=== PATIENT | male | born 1970 | race Hispanic/Latino ===

== ENCOUNTER 2020-01-04 12:00 | Inpatient (IN) | payer MEDICAID, SELFPAY ==
[2020-01-04] VITALS (8 sets, daily range): BP systolic 113–140; BP diastolic 71–83; PULSE 79–105; RESP 18–32; TEMP 37.3–37.8; O2SAT 92–96; BMI 28.2
--- NOTE | ~2020-01-04 | XR_ITS ---
XR chest 1V portable 01/04/2020 12:59 Indication: Cough.Covid Procedure: AP portable chest Comparison: No prior studies for comparison. Findings: Bilateral airspace disease, compatible with pneumonia. Heart size normal. No pleural effusi on or pneumothorax. No acute osseous abnormality. Impression: 1: Bilateral airspace disease, compatible with pneumonia. Reviewed, dictated and finalized at location B. Impression: 1: Bilateral airspace disease, compatible with pneumonia.
[2020-01-04] MEDS: ALBUTEROL SULFATE (*SP) INHALER 1 PUFF (12:31)
[2020-01-04] MEDS: SODIUM CHLORIDE 0.9% IV 1,000 ML 999 ML IV CONT (13:07)
--- NOTE | 2020-01-04 13:13 | ED.GENADULT ---
HPI - General Adult General Chief complaint: Shortness of Breath/Dyspnea Stated complaint: h/o COVID+ test, worsening sxs Time Seen by Provider: 01/04/20 12:09 Source: patient Mode of arrival: ambulatory Limitations: language barrier History of Present Illness HPI narrative: Patient is a 49-year-old male who presents to emergency department for evaluation of being positive for COVID not feeling well for the last 10 days. Patient presents noting that he experiences shortness of breath when talking and active. Patient notes at rest he is not dyspneic. Patient notes cough congestion rhinorrhea fever chills. Patient has been taking [id number] medications with minimal improvement. Patient denies tobacco abuse or any pain at this time Related Data Home Medications Medication Instructions Recorded Confirmed acetaminophen [Tylenol] 325 mg PO ONCE PRN 01/04/20 naproxen 01/04/20 01/04/20 Allergies Allergy/AdvReac Type Severity Reaction Status Date / Time No Known Allergies Allergy Verified 01/04/20 12:51 Review of Systems Review of Systems: All systems reviewed & are unremarkable except as noted in HPI and below PMFSH Social History Social History (Updated 01/04/20 @ 13:14 by Lei Hernandez PA-C) Smoking status: Never smoker Gender identity (if verbalized by the patient): Male Sexual Orientation (if Verbalized by the Patient): Straight or Heterosexual Exam Narrative: Exam Narrative: GENERAL: Well-appearing, well-nourished, and in no acute distress. HEAD: Normocephalic, atraumatic. EYES: PERRLA and EOMI. ENT: Nares clear, no rhinorrhea or epistaxis. Mucous membranes moist. Oropharynx without tonsillar hypertrophy exudate or other lesions. NECK: Supple. No adenopathy or masses. CHEST: Clear to auscultation. No respiratory distress. No wheezes with crackles in the lung base HEART: Regular rate and rhythm. No murmur heard. Normal peripheral pulses.. EXTREMITIES: Normal range of motion. No edema. SKIN: Warm, dry, no rash. NEURO: No focal deficits. Alert and oriented x3. PSYCH: Normal mood and affect. Course Course Emergency Course: Patient in the room in no distress aware of case findings treatment plan and diagnosis agreeing to stay in hospital antibiotics initiated patient will now be admitted due to the hypoxemia that occurred with activity Consultations Consultation #1: Discussed case with hospitalist who is agreed to accept the patient Date: 01/04/20 Time: 14:48 Vital Signs Vital signs: Vital Signs Temperature 100.1 F H 01/04/20 12:42 Pulse Rate 104 H 01/04/20 12:42 Respiratory Rate 27 H 01/04/20 12:42 Blood Pressure 140/77 01/04/20 12:42 Pulse Oximetry 93 01/04/20 12:42 Temperature 100.1 F H 01/04/20 12:54 Pulse Rate 93 01/04/20 14:01 Respiratory Rate 32 H 01/04/20 14:01 Blood Pressure 113/78 01/04/20 14:01 Pulse Oximetry 94 01/04/20 14:01 Medical Decision Making MDM Narrative Medical decision making narrative: Patient with COVID positive with pneumonia patient with activity became hypoxic will be placed in hospital for further evaluation antibiotics will be initiated in the emergency department. Patient resting comfortably in the room in no distress at this time patient was made aware of case findings treatment plan and diagnosis Vital Signs Vital Signs: Vital Signs Temperature 100.1 F H 01/04/20 12:42 Pulse Rate 104 H 01/04/20 12:42 Respiratory Rate 27 H 01/04/20 12:42 Blood Pressure 140/77 01/04/20 12:42 Pulse Oximetry 93 01/04/20 12:42 Temperature 100.1 F H 01/04/20 12:54 Pulse Rate 93 01/04/20 14:01 Respiratory Rate 32 H 01/04/20 14:01 Blood Pressure 113/78 01/04/20 14:01 Pulse Oximetry 94 01/04/20 14:01 Lab Data Result diagrams: 01/04/20 13:12 01/04/20 13:37 Labs: Lab Results 01/04/20 01/04/20 01/04/20 Range/Units 13:12 13:24 13:37 WBC 15.0 H (4.5-10.0) K/mm3 RBC
[2020-01-04 13:22] LABS: Basophils Percent Auto 0.2 % (0.2-1.2); Hematocrit 47.1 % (42.0-52.0); Immature Granulocyte Absolute 0.11 K/mm3 (0.00-0.031); Immature Granulocyte Percent A 0.7 % (0-0.5); Lymphocytes Absolute Auto 1.03 K/mm3 (0.9-3.2); Lymphocytes Percent Auto 6.9 % (18.3-44.2); Mean Corpuscular Hemoglobin 30.3 pg (26-34); Mean Corpuscular Volume 89.2 fl (80-100); Mean Platelet Volume 11.1 fl (7.4-10.4); Monocytes Absolute Auto 0.5 K/mm3 (0.1-0.6); Monocytes Percent Auto 3.3 % (2.6-8.5); Neutrophils Absolute Auto 13.3 K/mm3 (1.3-6.7); Neutrophils Percent Auto 88.9 % (45.5-73.1); Platelet Count Result 251 k/mm3 (150-375); Red Blood Count 5.28 M/mm3 (4.6-6.20)
[2020-01-04 13:51] LABS: Lactic Acid Reflex 1.3 mmol/L (0.7-2.1)
[2020-01-04 14:04] LABS: Alanine Aminotransferase 69 U/L (4-50); Albumin Level 3.8 g/dL (3.5-5.1); Alkaline Phosphatase 76 U/L (38-126); Aspartate Amino Transferase 80 U/L (17-59); Bilirubin,Total 0.4 mg/dL (0.2-1.3); Blood Urea Nitrogen 10 mg/dL (9-20); Calcium 8.1 mg/dL (8.4-10.2); Carbon Dioxide 25 mmol/L (22-30); Chloride 96 mmol/L (98-107); Estimated CRCL calculation 120 ml/min; Estimated Glomerular Filt Rate > 60; Glucose 119 mg/dL (75-110); Potassium 4.2 mmol/L (3.4-5.0); Sodium 131 mmol/L (137-145)
--- NOTE | 2020-01-04 14:10 | PC.NURSE ---
RN at bedside to complete ambulatory o2 sat . Pt jogged in place, HR 126, o2 sat 86% on Room Air. Pt returned to 93% RM once at rest.
--- NOTE | 2020-01-04 14:39 | PC.NURSE ---
pt placed on oxygen per [facility] request
[2020-01-04 15:04] LABS: Lactate Dehydrogenase 1067 U/L (313-618)
[2020-01-04 15:11] LABS: CRP 20.2 mg/dL (<1.0)
--- NOTE | 2020-01-04 16:44 | PC.NURSE ---
RN report given to Juan Antonio 3rd med surge
--- NOTE | 2020-01-04 17:45 | ADMGEN ---
This patient, Fernando Tony, was admitted to [facility] Surg Room 328-01. Patient/family oriented to hospital policies and general routines including ID bracelet, bed and alarms, visiting hours, pain management, procedures, bathroom and other care routines, personal items, smoking policy, room service/diet, and visiting hours. Valuables list has been completed. Information on how to activate the Rapid Response Team has been discussed. Patient/Family are encouraged to report perceived risks to care and to ask questions if they do not understand what they are told or what they should do.
--- NOTE | 2020-01-04 18:43 | PM.IMHP ---
H&P: HPI History of Present Illness Chief complaint: PNEUMONIA,COVID-19,HYPOXEMIA Narrative: Fernando Tony is a 49 year old male who tested positive for covid 19 approximately 9 days ago. The patient stated that he had a dry cough and a low-grade fever that was less than 101 for at least 10 days. The patient stated he had symptoms after he went on a camping trip in [place]. The patient stated that he has been taking Tylenol and Motrin for the discomfort. The patient stated that he works for [employer] and none of them were positive for COVID. Nobody in his family is sick. The patient stated that he when he starts his activity he starts to cough and then get short of breath. The patient was doing well on room air but was told to ambulate and desatted down in the 80s while in the emergency room. Patient was started on a Zithromax and Rocephin. Bilateral airspace disease compatible with pneumonia. Patient was started on oxygen at 2 L per nasal cannula. The patient was given Decadron x1 and giving a since her mycin Rocephin in the emergency room. He was also given inhaler. He was given IV Tylenol and IV fluids. Patient is being admitted for hypoxia with covid 19. Review of Systems Review of Systems: All systems reviewed & are unremarkable except as noted in HPI and below Constitutional: Constitutional: Reports as per HPI and Reports no additional constitutional complaints Eyes: Eyes: Reports as per HPI and Reports no additional eye complaints ENT: Reports system reviewed and no additional complaints, except as documented and Reports Normal hearing present Cardiovascular: Cardiovascular: Reports no additional cardiovascular complaints Respiratory: Respiratory: Reports no additional respiratory complaints and Reports no additional respiratory complaints Gastrointestinal: Gastrointestinal: Reports as per HPI and Reports no additional gastrointestinal complaints Musculoskeletal: Musculoskeletal: Reports no additional musculoskeletal complaints Integumentary/Breasts: Skin/Breast: Reports system reviewed and no additional complaints, except as docu and Reports as per HPI Neurologic: Reports system reviewed and no additional complaints, except as documented, Reports as per HPI and Reports Normal hearing present Psychiatric: Psychiatric: Reports no additional psychiatric complaints and Reports as per HPI Endocrine: Endocrine: Reports no additional endocrine complaints Hematologic/Lymphatic: Hematologic/Lymphatic: Reports no additional hematologic/lymphatic complaints Allergic/Immunologic: Allergic/Immunologic: Reports no additional allergic/immunologic complaints [facility] Past Medical History Medical History (Updated 01/04/20 @ 18:49 by Eduarda Barrios NP) No pertinent past medical history Surgical History Surgical History (Updated 01/04/20 @ 18:49 by Eduarda Barrios NP) No pertinent past surgical history Family History Family History (Updated 01/04/20 @ 18:50 by Eduarda Barrios NP) Mother Healthy female Father Healthy male adult Social History Social History (Updated 01/04/20 @ 18:51 by Eduarda Barrios NP) Social History: The patient stated that he is and lives with his . He has 4 children and they are healthy. He denies any tobacco marijuana use. He denies any illicit drugs. He works for a [employer]. He desires to be a full code and desires to have his is a durable power admitted attorneys for healthcare. Occasionally uses alcohol Smoking status: Never smoker Alcohol intake: never Substance use: never Substance use type: does not use Gender identity (if verbalized by the patient): Male Sexual Orientation (if Verbalized by the Patient): Straight or Heterosexual Spiritual care concerns: No Meds Home Medications and Allergies Home Medications Medication Instructions Recorded Confirmed Type acetaminophen [Tylenol] 325 mg PO ONCE PRN 01/04/20 History
[2020-01-04] MEDS: REMDESIVIR 200 MG/NS 250 ML 200 MG/250 ML BAG 250 MG IVPB (20:28)
[2020-01-04] MEDS: FAMOTIDINE 20 MG/2 ML VIAL IV PUSH (20:29)
[2020-01-04 22:58] LABS: Alanine Aminotransferase 81 U/L (4-50)
[2020-01-04] MEDS: LACTATED RINGERS 1,000 ML 125 ML IV CONT (23:38)
[2020-01-05] VITALS (9 sets, daily range): BP systolic 113–127; BP diastolic 70–80; PULSE 70–81; RESP 18; TEMP 36.5–37.4; O2SAT 87–94
[2020-01-05] MEDS: guaiFENesin 200 MG/10 ML UDC 100 MG PO (02:20)
[2020-01-05 06:36] LABS: Basophils Percent Auto 0.1 % (0.2-1.2); Hematocrit 41.4 % (42.0-52.0); Hemoglobin 14.5 g/dL (14.0-18.0); Immature Granulocyte Absolute 0.07 K/mm3 (0.00-0.031); Immature Granulocyte Percent A 0.6 % (0-0.5); Lymphocytes Absolute Auto 0.89 K/mm3 (0.9-3.2); Lymphocytes Percent Auto 7.3 % (18.3-44.2); Mean Corpuscular Hemoglobin 30.8 pg (26-34); Mean Corpuscular Volume 87.9 fl (80-100); Mean Platelet Volume 10.7 fl (7.4-10.4); Monocytes Absolute Auto 0.5 K/mm3 (0.1-0.6); Monocytes Percent Auto 4.1 % (2.6-8.5); Neutrophils Absolute Auto 10.8 K/mm3 (1.3-6.7); Neutrophils Percent Auto 87.9 % (45.5-73.1); Platelet Count Result 296 k/mm3 (150-375); Red Blood Count 4.71 M/mm3 (4.6-6.20); Red Cell Distribution Width 11.8 % (11.5-14.5); White Blood Count 12.2 K/mm3 (4.5-10.0)
[2020-01-05 06:52] LABS: Blood Urea Nitrogen 13 mg/dL (9-20); Calcium 8.6 mg/dL (8.4-10.2); Carbon Dioxide 27 mmol/L (22-30); Chloride 100 mmol/L (98-107); Estimated CRCL calculation 120 ml/min; Estimated Glomerular Filt Rate > 60; Glucose 149 mg/dL (75-110); Potassium 4.2 mmol/L (3.4-5.0); Sodium 135 mmol/L (137-145)
[2020-01-05] MEDS: FAMOTIDINE 20 MG/2 ML VIAL IV PUSH ×2 (08:34→20:20)
[2020-01-05] MEDS: LACTATED RINGERS 1,000 ML 125 ML IV CONT (08:34)
[2020-01-05] MEDS: DEXAMETHASONE SOD PHOS INJ 4 MG/ML VIAL 6 MG IV PUSH (10:59)
[2020-01-05] MEDS: ENOXAPARIN 40 MG/0.4 ML SYRINGE SUB-Q ×2 (11:00→20:19)
[2020-01-05] MEDS: ALBUTEROL SULFATE (*SP) INHALER 1 PUFF (15:12)
--- NOTE | 2020-01-05 16:39 | PM.IMPN ---
Progress Note: A&P Assessment and Plan (1) COVID-19: Code(s): U07.1 - COVID-19 Status: Acute Assessment and Plan: The patient tested positive approximately 9 days ago. He was started on a Zithromax and Rocephin for possible secondary bacterial infection. Also he was started on Decadron due to his hypoxia. Patient does well on room air when resting but when he gets up and moves around 80 sats in the 80s. started him on REMdesivir also. liver functions closely. Patient is on room air at this time (2) Hypoxemia: Code(s): R09.02 - Hypoxemia Status: Acute Assessment and Plan: Patient desaturates whenever he is up walking around and he was placed on 2 L per nasal cannula. With activity (3) Pneumonia: Code(s): J18.9 - Pneumonia, unspecified organism Status: Acute Assessment and Plan: started on a Zithromax and Rocephin. And will probably need no antibiotics on discharge. He was also started on an inhaler Subjective Date/time seen: 01/05/20 16:39 Interval history: Date of visit 01/04. 41-year-old male admitted with increasing shortness of breath than history of recently diagnosed COVID. Feels fine at rest and has minimal cough. Still some dyspnea on exertion. No longer fever chills or myalgias. Exam Narrative: Exam Narrative: Blood pressure 120/72 pulse is 70 afebrile saturating 94% on room air at rest Pupils equal reactive to light sclera anicteric Lungs clear with very faint try posterior basal crackles CV no murmurs or gallops Abdomen is soft nontender no masses Extremities without edema good distal pulses Neuro alert cooperative no focal deficits Objective Data Vital Signs Vital Signs: Vital Signs - 24 hr 01/04/20 17:37 01/04/20 22:00 01/05/20 02:00 Temperature 37.3 C 36.7 C Pulse Rate 83 79 81 Respiratory Rate 27 H 20 18 Blood Pressure 124/82 123/73 127/79 Pulse Oximetry 94 92 87 L 01/05/20 06:00 01/05/20 08:00 01/05/20 10:00 Temperature 37.4 C 37.2 C Pulse Rate 72 73 Respiratory Rate 18 18 Blood Pressure 113/70 120/70 Pulse Oximetry 94 92 94 01/05/20 14:00 Temperature 37.0 C Pulse Rate 70 Respiratory Rate 18 Blood Pressure 120/72 Pulse Oximetry 94 Intake/Output Intake/Output: Intake & Output 01/02/20 01/03/20 01/04/20 01/05/20 23:59 23:59 23:59 23:59 Intake Total 1650 2250 Output Total 600 Balance 1650 1650 Meds/Results Medications: Active Medications Generic Name Dose Route Start Last Admin Trade Name Freq PRN Reason Stop Dose Admin Albuterol 2 puff 01/04/20 18:44 Proventil Hfa INHALATION QIDRT PRN Shortness Of Breath Dexamethasone Sodium Phosphate 6 mg 01/05/20 09:00 01/05/20 10:59 Decadron 4 Mg/Ml Inj IV PUSH 6 mg DAILY JONAS Administration Enoxaparin Sodium 40 mg 01/05/20 09:00 01/05/20 11:00 Lovenox SUB-Q 40 mg Q12HR JONAS Administration Famotidine 20 mg 01/04/20 21:00 01/05/20 08:34 Pepcid Iv IV PUSH 20 mg Q12HR JONAS Administration Azithromycin 500 mg in 250 mls @ 250 mls/hr 01/05/20 14:00 01/05/20 13:06 Zithromax IVPB 250 mls/hr Q24H JONAS Administration Ceftriaxone Sodium/Dextrose 1 gm in 50 mls @ 100 mls/hr 01/05/20 14:00 01/05/20 14:27 Rocephin 1 Gm/D5w 50 Ml IVPB 100 mls/hr Q24H JONAS Administration Acetaminophen 1,000 mg in 100 mls @ 400 mls/hr 01/04/20 18:00 Ofirmev 1,000 Mg Ivpb IVPB 01/05/20 18:01 Q6H PRN Mild Pain (1-3) or Fever Remdesivir 100 mg in 250 mls @ 250 mls/hr 01/05/20 18:30 IVPB 01/08/20 19:29 Q24H JONAS Radiology Results: ITS Impressions Chest X-Ray 01/04/20 13:02 Impression: 1: Bilateral airspace disease, compatible with pneumonia. Labs Labs: Laboratory Results - last 24 hr 01/04/20 01/05/20 01/05/20 22:39 06:27 06:27 WBC 12.2 H RBC 4.71 Hgb 14.5 Hct 41.4 L MCV 87.9 MCH 30.8 MCHC 35.0 RDW 11.8 Plt Count 296 M
[2020-01-05] MEDS: REMDESIVIR 100 MG/NS 250 ML 100 MG/250 ML BAG 250 MG IVPB (18:18)
[2020-01-05 18:26] LABS: Alanine Aminotransferase 80 U/L (4-50)
[2020-01-06] VITALS (7 sets, daily range): BP systolic 117–145; BP diastolic 71–88; PULSE 61–72; RESP 16–20; TEMP 36.3–37.2; O2SAT 92–96
[2020-01-06 06:47] LABS: Basophils Percent Auto 0.3 % (0.2-1.2); Hematocrit 40.8 % (42.0-52.0); Hemoglobin 13.4 g/dL (14.0-18.0); Immature Granulocyte Absolute 0.12 K/mm3 (0.00-0.031); Immature Platelet Fraction Pct 2.8 % (0.9-11.2); Lymphocytes Absolute Auto 1.24 K/mm3 (0.9-3.2); Lymphocytes Percent Auto 10.4 % (18.3-44.2); Mean Corpuscular HGB Conc 32.8 g/dl (32-36); Mean Corpuscular Hemoglobin 31.1 pg (26-34); Mean Corpuscular Volume 94.7 fl (80-100); Monocytes Absolute Auto 0.8 K/mm3 (0.1-0.6); Neutrophils Absolute Auto 9.7 K/mm3 (1.3-6.7); Neutrophils Percent Auto 81.3 % (45.5-73.1); Nucleated Red Blood Cells Perc 0.2 % (0.0-0.2); Platelet Count Result 321 k/mm3 (150-375); Red Blood Count 4.31 M/mm3 (4.6-6.20); Red Cell Distribution Width 12.4 % (11.5-14.5); White Blood Count 11.9 K/mm3 (4.5-10.0)
[2020-01-06 06:54] LABS: D Dimer 0.27 ug/mL (<0.48)
[2020-01-06 07:03] LABS: Alanine Aminotransferase 76 U/L (4-50); Albumin Level 3.7 g/dL (3.5-5.1); Alkaline Phosphatase 69 U/L (38-126); Aspartate Amino Transferase 61 U/L (17-59); Bilirubin,Total 0.4 mg/dL (0.2-1.3); Blood Urea Nitrogen 20 mg/dL (9-20); CRP 5.2 mg/dL (<1.0); Calcium 8.9 mg/dL (8.4-10.2); Carbon Dioxide 23 mmol/L (22-30); Chloride 102 mmol/L (98-107); Estimated CRCL calculation 120 ml/min; Estimated Glomerular Filt Rate > 60; Glucose 144 mg/dL (75-110); Lactate Dehydrogenase 948 U/L (313-618); Potassium 4.6 mmol/L (3.4-5.0); Sodium 134 mmol/L (137-145)
[2020-01-06] MEDS: FAMOTIDINE 20 MG/2 ML VIAL IV PUSH ×2 (08:49→20:56)
[2020-01-06] MEDS: ENOXAPARIN 40 MG/0.4 ML SYRINGE SUB-Q ×2 (08:50→20:56)
[2020-01-06] MEDS: DEXAMETHASONE SOD PHOS INJ 4 MG/ML VIAL 6 MG IV PUSH (08:50)
--- NOTE | 2020-01-06 14:47 | PM.IMPN ---
Progress Note: A&P Assessment and Plan (1) COVID-19: Code(s): U07.1 - COVID-19 Status: Acute Assessment and Plan: The patient tested positive approximately 9 days ago. He was started on a Zithromax and Rocephin for possible secondary bacterial infection. Also he was started on Decadron due to his hypoxia. Patient does well on room air when resting but when he gets up and moves around desats in the 80s. REMdesivir D# 3 also. liver functions closely. Ddimer normal and crp falling. follow other markers too (2) Hypoxemia: Code(s): R09.02 - Hypoxemia Status: Acute Assessment and Plan: Patient desaturates whenever he is up walking around and he was placed on 2 L per nasal cannula. With activity (3) Pneumonia: Code(s): J18.9 - Pneumonia, unspecified organism Status: Acute Assessment and Plan: started on a Zithromax and Rocephin. And will probably need no antibiotics on discharge. He was also started on an inhaler Subjective Date/time seen: 01/06/20 14:47 Interval history: Date of visit 01/05. 41-year-old male admitted with increasing shortness of breath and history of recently diagnosed COVID. Feels fine at rest and has minimal cough. Still dyspnea on exertion. No longer fever chills or myalgias. Exam Narrative: Exam Narrative: Blood pressure 130/80 pulse is 72 afebrile saturating 96% on 2L NC Pupils equal reactive to light sclera anicteric Lungs clear with very faint dry posterior basal crackles CV no murmurs or gallops Abdomen is soft nontender no masses Extremities without edema good distal pulses Neuro alert cooperative no focal deficits Objective Data Vital Signs Vital Signs: Vital Signs - 24 hr 01/05/20 18:00 01/05/20 20:00 01/05/20 22:00 Temperature 36.7 C 36.5 C Pulse Rate 71 72 Respiratory Rate 18 18 Blood Pressure 121/70 126/80 Pulse Oximetry 93 90 93 01/06/20 02:00 01/06/20 06:00 01/06/20 10:00 Temperature 37.2 C 36.3 C L 36.5 C Pulse Rate 67 62 72 Respiratory Rate 20 18 18 Blood Pressure 117/71 117/79 130/81 Pulse Oximetry 92 92 96 Intake/Output Intake/Output: Intake & Output 01/03/20 01/04/20 01/05/20 01/06/20 23:59 23:59 23:59 23:59 Intake Total 1650 5140 790 Output Total 1800 400 Balance 1650 3340 390 Meds/Results Medications: Active Medications Generic Name Dose Route Start Last Admin Trade Name Freq PRN Reason Stop Dose Admin Albuterol 2 puff 01/04/20 18:44 Proventil Hfa INHALATION QIDRT PRN Shortness Of Breath Dexamethasone Sodium Phosphate 6 mg 01/05/20 09:00 01/06/20 08:50 Decadron 4 Mg/Ml Inj IV PUSH 6 mg DAILY JONAS Administration Enoxaparin Sodium 40 mg 01/05/20 09:00 01/06/20 08:50 Lovenox SUB-Q 40 mg Q12HR JONAS Administration Famotidine 20 mg 01/04/20 21:00 01/06/20 08:49 Pepcid Iv IV PUSH 20 mg Q12HR JONAS Administration Azithromycin 500 mg in 250 mls @ 250 mls/hr 01/05/20 14:00 01/06/20 13:46 Zithromax IVPB 250 mls/hr Q24H JONAS Administration Ceftriaxone Sodium/Dextrose 1 gm in 50 mls @ 100 mls/hr 01/05/20 14:00 01/06/20 13:46 Rocephin 1 Gm/D5w 50 Ml IVPB 100 mls/hr Q24H JONAS Administration Remdesivir 100 mg in 250 mls @ 250 mls/hr 01/05/20 18:30 01/05/20 19:18 IVPB 01/08/20 19:29 Infused Q24H JONAS Infusion Radiology Results: ITS Impressions Chest X-Ray 01/04/20 13:02 Impression: 1: Bilateral airspace disease, compatible with pneumonia. Labs Labs: Laboratory Results - last 24 hr 01/05/20 01/06/20 01/06/20 18:09 06:12 06:12 WBC RBC Hgb Hct MCV MCH MCHC RDW Plt Count MPV Immature Gran % (Auto) Neut % (Auto) Lymph % (Auto) [place] % (Auto) Eos % (Auto) Baso % (Auto) Lymph # (Auto) [place] # (Auto) Eos # (Auto) Baso # (Auto) Abs Immat Gran (auto) Absolute Neuts (auto) Absolute Nucleated RBC Nucle
[2020-01-06] MEDS: REMDESIVIR 100 MG/NS 250 ML 100 MG/250 ML BAG 250 MG IVPB (18:16)
[2020-01-06 20:10] LABS: Alanine Aminotransferase 98 U/L (4-50)
[2020-01-07 02:00] VITALS: BP 136/84; PULSE 57; RESP 18; TEMP 36.4; O2SAT 94
[2020-01-07 06:00] VITALS: BP 126/80; PULSE 57; RESP 16; TEMP 36.3; O2SAT 95
[2020-01-07 06:11] LABS: Hematocrit 43.5 % (42.0-52.0); Immature Platelet Fraction Pct 6.7 % (0.9-11.2); Mean Corpuscular HGB Conc 34.5 g/dl (32-36); Mean Corpuscular Hemoglobin 30.5 pg (26-34); Mean Corpuscular Volume 88.6 fl (80-100); Platelet Count Result 418 k/mm3 (150-375); Red Blood Count 4.91 M/mm3 (4.6-6.20); Red Cell Distribution Width 11.9 % (11.5-14.5); White Blood Count 14.6 K/mm3 (4.5-10.0)
[2020-01-07 06:26] LABS: CRP 2.9 mg/dL (<1.0); Lactate Dehydrogenase 695 U/L (313-618)
[2020-01-07 06:37] LABS: Atypical Lymphocytes Present; Band Neutrophils Percent 3 % (0-6); Monocytes Absolute Manual 1.89 K/mm3 (0.1-0.90); Monocytes Percent Manual 13 % (3-9); Neutrophils Absolute Manual 11.09 K/mm3 (1.3-6.7); Neutrophils Percent Manual 73 % (46-73); Total Cells Counted 100
[2020-01-07] MEDS: DEXAMETHASONE SOD PHOS INJ 4 MG/ML VIAL 6 MG IV PUSH (09:56)
[2020-01-07] MEDS: ENOXAPARIN 40 MG/0.4 ML SYRINGE SUB-Q ×2 (09:56→20:40)
[2020-01-07] MEDS: FAMOTIDINE 20 MG/2 ML VIAL IV PUSH ×2 (09:56→20:40)
[2020-01-07 10:00] VITALS: BP 133/76; PULSE 60; RESP 16; TEMP 36.3; O2SAT 96
[2020-01-07 14:00] VITALS: BP 142/73; PULSE 61; RESP 16; TEMP 36.3; O2SAT 95
--- NOTE | 2020-01-07 16:51 | PM.IMPN ---
Progress Note: A&P Assessment and Plan (1) COVID-19: Code(s): U07.1 - COVID-19 Status: Acute Assessment and Plan: The patient tested positive approximately 11 days ago. He was started on a Zithromax and Rocephin for possible secondary bacterial infection. Also he was started on Decadron due to his hypoxia. Patient does well on room air when resting but when he gets up and moves around desats in the 80s. REMdesivir D# 4 also. liver functions stable Ddimer normal and crp ,ferritin,and LDH all falling (2) Hypoxemia: Code(s): R09.02 - Hypoxemia Status: Acute Assessment and Plan: Patient desaturates whenever he is up walking around and he was placed on 3 L per nasal cannula. With activity (3) Pneumonia: Code(s): J18.9 - Pneumonia, unspecified organism Status: Acute Assessment and Plan: started on a Zithromax and Rocephin in ER and will d/c. He was also started on an inhaler Subjective Date/time seen: 01/07/20 16:51 Interval history: Date of visit 01/05. 41-year-old male admitted with increasing shortness of breath and history of recently diagnosed COVID. Feels fine at rest and has minimal cough. Still dyspnea on exertion but better. No longer fever chills or myalgias. Exam Narrative: Exam Narrative: Blood pressure 142/72 pulse is 60 afebrile saturating 95% on 3L NC Pupils equal reactive to light sclera anicteric Lungs clear with very faint dry posterior basal crackles CV no murmurs or gallops Abdomen is soft nontender no masses Extremities without edema good distal pulses Neuro alert cooperative no focal deficits Objective Data Vital Signs Vital Signs: Vital Signs - 24 hr 01/06/20 18:00 01/06/20 22:00 01/07/20 02:00 Temperature 36.4 C 36.4 C 36.4 C Pulse Rate 61 62 57 L Respiratory Rate 16 18 18 Blood Pressure 126/79 145/88 H 136/84 Pulse Oximetry 94 92 94 01/07/20 06:00 01/07/20 10:00 01/07/20 14:00 Temperature 36.3 C L 36.3 C L 36.3 C L Pulse Rate 57 L 60 61 Respiratory Rate 16 16 16 Blood Pressure 126/80 133/76 142/73 H Pulse Oximetry 95 96 95 Intake/Output Intake/Output: Intake & Output 01/04/20 01/05/20 01/06/20 01/07/20 23:59 23:59 23:59 23:59 Intake Total 1650 5140 2130 890 Output Total 1800 1400 1150 Balance 1650 3340 730 -260 Meds/Results Medications: Active Medications Generic Name Dose Route Start Last Admin Trade Name Freq PRN Reason Stop Dose Admin Albuterol 2 puff 01/04/20 18:44 Proventil Hfa INHALATION QIDRT PRN Shortness Of Breath Dexamethasone Sodium Phosphate 6 mg 01/05/20 09:00 01/07/20 09:56 Decadron 4 Mg/Ml Inj IV PUSH 6 mg DAILY JONAS Administration Enoxaparin Sodium 40 mg 01/05/20 09:00 01/07/20 09:56 Lovenox SUB-Q 40 mg Q12HR JONAS Administration Famotidine 20 mg 01/04/20 21:00 01/07/20 09:56 Pepcid Iv IV PUSH 20 mg Q12HR JONAS Administration Azithromycin 500 mg in 250 mls @ 250 mls/hr 01/05/20 14:00 01/07/20 14:56 Zithromax IVPB 250 mls/hr Q24H JONAS Administration Ceftriaxone Sodium/Dextrose 1 gm in 50 mls @ 100 mls/hr 01/05/20 14:00 01/07/20 14:55 Rocephin 1 Gm/D5w 50 Ml IVPB 100 mls/hr Q24H JONAS Administration Remdesivir 100 mg in 250 mls @ 250 mls/hr 01/05/20 18:30 01/06/20 20:55 IVPB 01/08/20 19:29 Infused Q24H JONAS Infusion Radiology Results: ITS Impressions Chest X-Ray 01/04/20 13:02 Impression: 1: Bilateral airspace disease, compatible with pneumonia. Labs Labs: Laboratory Results - last 24 hr 01/06/20 01/07/20 01/07/20 19:55 05:47 05:47 WBC 14.6 H RBC 4.91 Hgb 15.0 Hct 43.5 MCV 88.6 D MCH 30.5 MCHC 34.5 RDW 11.9 Plt Count 418 H MPV 11.0 H Immature Gran % (Auto) Not Reportable Neut % (Auto) Not Reportable Lymph % (Auto) Not Reportable [place] % (Auto) Not Reportable Eos % (Auto) Not Reportable Baso % (Auto) Not Reporta
[2020-01-07 18:00] VITALS: BP 135/73; PULSE 56; RESP 16; TEMP 36.4; O2SAT 97
[2020-01-07] MEDS: REMDESIVIR 100 MG/NS 250 ML 100 MG/250 ML BAG 250 MG IVPB (18:32)
[2020-01-07 20:04] LABS: Alanine Aminotransferase 90 U/L (4-50)
[2020-01-07 22:00] VITALS: BP 136/70; PULSE 60; RESP 18; TEMP 36.3; O2SAT 94
[2020-01-08 01:34] VITALS: PULSE 63; O2SAT 95
[2020-01-08 02:00] VITALS: BP 118/76; PULSE 55; RESP 18; TEMP 36.3; O2SAT 96
[2020-01-08 06:00] VITALS: BP 122/82; PULSE 56; RESP 18; TEMP 36.3; O2SAT 96
[2020-01-08 06:06] LABS: Basophils Absolute Auto 0.1 K/mm3 (0.0-0.1); Basophils Percent Auto 0.6 % (0.2-1.2); Eosinophils Percent Auto 0.1 % (0-4.4); Hematocrit 43.3 % (42.0-52.0); Hemoglobin 15.2 g/dL (14.0-18.0); Immature Granulocyte Absolute 0.69 K/mm3 (0.00-0.031); Immature Granulocyte Percent A 5.1 % (0-0.5); Lymphocytes Absolute Auto 2.21 K/mm3 (0.9-3.2); Lymphocytes Percent Auto 16.3 % (18.3-44.2); Mean Corpuscular HGB Conc 35.1 g/dl (32-36); Mean Corpuscular Volume 88.4 fl (80-100); Mean Platelet Volume 10.5 fl (7.4-10.4); Monocytes Absolute Auto 1.1 K/mm3 (0.1-0.6); Monocytes Percent Auto 8.4 % (2.6-8.5); Neutrophils Absolute Auto 9.4 K/mm3 (1.3-6.7); Neutrophils Percent Auto 69.5 % (45.5-73.1); Nucleated Red Blood Cells Perc 0.2 % (0.0-0.2); Platelet Count Result 451 k/mm3 (150-375); White Blood Count 13.6 K/mm3 (4.5-10.0)
[2020-01-08 06:22] LABS: D Dimer 0.27 ug/mL (<0.48)
[2020-01-08 06:25] LABS: Alanine Aminotransferase 83 U/L (4-50); Albumin Level 3.6 g/dL (3.5-5.1); Alkaline Phosphatase 76 U/L (38-126); Aspartate Amino Transferase 43 U/L (17-59); Bilirubin,Total 0.3 mg/dL (0.2-1.3); Blood Urea Nitrogen 23 mg/dL (9-20); CRP 2.2 mg/dL (<1.0); Calcium 8.8 mg/dL (8.4-10.2); Carbon Dioxide 29 mmol/L (22-30); Chloride 99 mmol/L (98-107); Estimated CRCL calculation 104 ml/min; Estimated Glomerular Filt Rate > 60; Glucose 114 mg/dL (75-110); Lactate Dehydrogenase 614 U/L (313-618); Sodium 134 mmol/L (137-145)
[2020-01-08] MEDS: DEXAMETHASONE SOD PHOS INJ 4 MG/ML VIAL 6 MG IV PUSH (09:10)
[2020-01-08] MEDS: FAMOTIDINE 20 MG/2 ML VIAL IV PUSH (09:10)
[2020-01-08] MEDS: ENOXAPARIN 40 MG/0.4 ML SYRINGE SUB-Q (09:10)
[2020-01-08 10:00] VITALS: BP 118/72; PULSE 75; RESP 16; TEMP 36.6; O2SAT 94
--- NOTE | 2020-01-08 13:04 | PM.IMPN ---
Progress Note: A&P Assessment and Plan (1) COVID-19: Code(s): U07.1 - COVID-19 Status: Acute Assessment and Plan: The patient tested positive approximately 13 days ago. He was started on a Zithromax and Rocephin for possible secondary bacterial infection. Also he was started on Decadron due to his hypoxia. Patient does well on room air when resting but when he gets up and moves around desats in the 80s. REMdesivir D# 5 this pm also. liver functions improving Ddimer normal and crp ,ferritin,and LDH all falling (2) Hypoxemia: Code(s): R09.02 - Hypoxemia Status: Acute Assessment and Plan: Patient desaturates whenever he is up walking around and now at 1LNC (3) Pneumonia: Code(s): J18.9 - Pneumonia, unspecified organism Status: Acute Assessment and Plan: started on a Zithromax and Rocephin in ER and will d/c.after 3 days He was also started on an inhaler (4) Elevated LFTs: Code(s): R79.89 - Other specified abnormal findings of blood chemistry Status: Acute Assessment and Plan: continues to improve. thought secondary to covid. Repeat in am on remdesivir and check hep panel too Subjective Date/time seen: 01/08/20 13:04 Interval history: Date of visit 01/07. 41-year-old male admitted with increasing shortness of breath and history of recently diagnosed COVID. Feels fine at rest and has minimal cough. Still dyspnea on exertion but better. No longer fever chills or myalgias. Exam Narrative: Exam Narrative: Blood pressure 118/72 pulse is 74 afebrile saturating 94% on 1L NC Pupils equal reactive to light sclera anicteric Lungs clear CV no murmurs or gallops Abdomen is soft nontender no masses Extremities without edema good distal pulses Neuro alert cooperative no focal deficits Objective Data Vital Signs Vital Signs: Vital Signs - 24 hr 01/07/20 14:00 01/07/20 18:00 01/07/20 22:00 Temperature 36.3 C L 36.4 C 36.3 C L Pulse Rate 61 56 L 60 Respiratory Rate 16 16 18 Blood Pressure 142/73 H 135/73 136/70 Pulse Oximetry 95 97 94 01/08/20 01:34 01/08/20 02:00 01/08/20 06:00 Temperature 36.3 C L 36.3 C L Pulse Rate 63 55 L 56 L Respiratory Rate 18 18 Blood Pressure 118/76 122/82 Pulse Oximetry 95 96 96 01/08/20 10:00 Temperature 36.6 C Pulse Rate 75 Respiratory Rate 16 Blood Pressure 118/72 Pulse Oximetry 94 Intake/Output Intake/Output: Intake & Output 01/05/20 01/06/20 01/07/20 01/08/20 23:59 23:59 23:59 23:59 Intake Total 5140 2130 2890 1120 Output Total 1800 1400 1950 975 Balance 3340 730 940 145 Meds/Results Medications: Active Medications Generic Name Dose Route Start Last Admin Trade Name Freq PRN Reason Stop Dose Admin Albuterol 2 puff 01/04/20 18:44 Proventil Hfa INHALATION QIDRT PRN Shortness Of Breath Dexamethasone 6 mg 01/09/20 08:00 Dexamethasone Po PO DAILY@0800 JONAS Enoxaparin Sodium 40 mg 01/05/20 09:00 01/08/20 09:10 Lovenox SUB-Q 40 mg Q12HR JONAS Administration Famotidine 20 mg 01/04/20 21:00 01/08/20 09:10 Pepcid Iv IV PUSH 20 mg Q12HR JONAS Administration Remdesivir 100 mg in 250 mls @ 250 mls/hr 01/05/20 18:30 01/07/20 20:40 IVPB 01/08/20 19:29 Infused Q24H JONAS Infusion Radiology Results: ITS Impressions Chest X-Ray 01/04/20 13:02 Impression: 1: Bilateral airspace disease, compatible with pneumonia. Labs Labs: Laboratory Results - last 24 hr 01/07/20 01/08/20 01/08/20 19:42 05:57 05:57 WBC 13.6 H RBC 4.90 Hgb 15.2 Hct 43.3 MCV 88.4 MCH 31.0 MCHC 35.1 RDW 12.0 Plt Count 451 H MPV 10.5 H Immature Gran % (Auto) 5.1 H Neut % (Auto) 69.5 Lymph % (Auto) 16.3 L [place] % (Auto) 8.4 Eos % (Auto) 0.1 Baso % (Auto) 0.6 Lymph # (Auto) 2.21 [place] # (Auto) 1.1 H Eos # (Auto) 0.0 Baso # (Auto) 0.1 Abs Immat Gran (auto) 0.69
[2020-01-08 14:00] VITALS: BP 128/71; PULSE 71; RESP 16; TEMP 37.4; O2SAT 95
[2020-01-08] MEDS: REMDESIVIR 100 MG/NS 250 ML 100 MG/250 ML BAG 250 MG IVPB (15:41)
--- NOTE | 2020-01-11 13:30 | PM.DS ---
DS: Admitting Diagnosis Admitting Diagnosis Admitting Diagnosis: COVID-19 DS: Discharge Diagnosis Discharge Diagnosis (1) COVID-19: Code(s): U07.1 - COVID-19 Status: Acute Assessment and Plan: The patient tested positive approximately 13 days ago. He was started on a Zithromax and Rocephin for possible secondary bacterial infection. Also he was started on Decadron due to his hypoxia. Patient does well on room air when resting but when he gets up and moves around desats in the 80 on admisssion. REMdesivir D# 5 completed before d/c and 02 sat at 95% on RA at d//c Ddimer normal and crp ,ferritin,and LDH all falling (2) Hypoxemia: Code(s): R09.02 - Hypoxemia Status: Acute Assessment and Plan: continued to improve and as stated above at 95% on room air at discharge (3) Pneumonia: Code(s): J18.9 - Pneumonia, unspecified organism Status: Acute Assessment and Plan: started on a Zithromax and Rocephin in ER and will d/c.after 3 days He was also started on an inhaler while here also (4) Elevated LFTs: Code(s): R79.89 - Other specified abnormal findings of blood chemistry Status: Acute Assessment and Plan: continues to improve. thought secondary to covid. DS: Summary Hospital Course Hospital Course: 49-year-old known positive COVID patient presented to the emergency room with increasing shortness of breath. Room air saturation was adequate but with minimal exertion dropped to 87%. Was admitted and placed on room does of ear daily for 5 days and Decadron 6 mg daily. On this regime he continued to improve with markers falling and O2 sats rising to 95% on room air at discharge. He will follow with 5 more days of Decadron 6 mg daily and follow-up with primary care or clinic within the next 2 weeks. Return to work after seen there. Time Spent with Patient Time attestation: Total time spent providing and/or coordinating discharge services:35 minutes Exam Narrative: Exam Narrative: condition on discharge blood pressure 128/70 pulse is 70 temp 37.4? saturating 95% on room air lungs clear CV no murmurs abdomen soft nontender no masses extremities without edema distal pulses intact neuro alert oriented cooperative pleasant feeling much better with no shortness of breath at rest and much less shortness of breath with exertion Discharge Plan Discharge Attending physician on discharge: Sae Marcelino Consulting providers: Myke Guerrero ; Lei Hernandez ; Eduarda Barrios ; Dakota Molina Discharging Clinician: Sae Marcelino Patient Disposition: Home, Self-Care Activity: as tolerated Diet: regular Discharge Instructions: RTW after released from clinic Patient Instructions: Antibiotic Form, COVID-19 (Coronavirus Disease 2019) (DC), COVID-19: Slow the Coronavirus Spread (DC) Stand Alone Forms: General Discharge Information Follow-up/Referrals: Myke Guerrero MD [Physician] - 1 Week Discharge Medications: New dexamethasone 6 mg tablet 6 mg PO DAILY Qty: 5 RF: 0 Continued acetaminophen [Tylenol] 325 mg Tablet 325 mg PO ONCE PRN (Reason: Pain) RF: 0 Date of admission: 01/04/20 15:05 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
== END 2020-01-08 17:45 | disposition home or self-care (01) | DRG 137 ==
LOC: ANHED 14:48 → ANH3MEDSUR 17:37
PROVIDERS: Emergency Medicine Emergency Medical Services; Nurse Practitioner; Admitting Provider Internal Medicine; Emergency Provider Emergency Medicine; Visit Provider Internal Medicine
DX: U07.1 COVID-19 (principal); J12.89 Other viral pneumonia; R09.02 Hypoxemia
CPT/HCPCS: 36415; 71045; 80048; 80053; 82728; 83605; 83615; 84460; 85025; 85055; 85380; 86140; 87040; 94640; 96361; 96365; 96367; 96375; 99285; A9270; J0131; J0456; J0696; J1100; J1650; J7030; J7120